=== PATIENT | female | born 1960 | race African-American/Black ===

== ENCOUNTER 2023-12-14 14:19 | Emergency (ER) | payer MEDICARE ==
[~2023-12-14] VITALS: Ht 167.6 cm; Wt 100.0 kg
[2023-12-14 14:24] VITALS: O2SAT 100
[2023-12-14] MEDS: KETOROLAC 60MG/2ML VIAL IM ONE (16:15)
[2023-12-14] MEDS ORDERED: TOPUD MT (16:37)
[2023-12-14] MEDS ORDERED: IBUP-1525 MT (16:37)
[2023-12-14] MEDS ORDERED: TRAM50TA3 MT ×2 (16:37→16:50)
[2023-12-14] MEDS: HYDROCODONE/ACETAMINOPHEN 7.5/325MG TABLET PO PRN (16:55)
[2023-12-14] MEDS ORDERED: CYCL10TA21 MT (16:56)
[2023-12-14] MEDS ORDERED: CAPS1ADH9 TP (16:56)
[2023-12-14 17:02] VITALS: BP 133/68; PULSE 81; RESP 20; TEMP 98.3
== END 2023-12-14 17:43 | disposition home or self-care (01) ==
LOC: ER 14:19
DX: M25.512 Pain in left shoulder (principal); Z98.890 Other specified postprocedural states
CPT/HCPCS: 99283; J1885

== ENCOUNTER 2024-04-26 14:29 | Emergency (ER) | payer MEDICARE, MEDICAID ==
[~2024-04-26] VITALS: Ht 167.6 cm; Wt 90.7 kg
[~2024-04-26 14:29] MED LIST: CAPS1ADH9 TP; CYCL10TA21 MT; IBUP-1525 MT; TOPUD MT
[2024-04-26 14:35] VITALS: O2SAT 99
[2024-04-26] MEDS ORDERED: BO1 TP (15:36)
[2024-04-26] MEDS ORDERED: CLOT15CR27 TP (15:36)
[2024-04-26 15:44] VITALS: BP 138/91; PULSE 90; RESP 18; TEMP 98.6
== END 2024-04-26 15:47 | disposition home or self-care (01) ==
LOC: ER 14:48
DX: S91.115A Laceration without foreign body of left lesser toe(s) without damage to nail, initial encounter (principal); Z98.890 Other specified postprocedural states; Z79.899 Other long term (current) drug therapy; X58.XXXA Exposure to other specified factors, initial encounter; Y93.89 Activity, other specified; Y92.89 Other specified places as the place of occurrence of the external cause; Y99.8 Other external cause status
CPT/HCPCS: 99282